=== PATIENT | male | born 1990 | race Caucasian/White ===

== ENCOUNTER 2018-03-01 18:25 | Emergency (ER) | payer BC, OTHER ==
--- NOTE | 2018-03-01 18:28 | PDOC ---
History of Present Illness - General History Source: Patient Exam Limitations: No Limitations - History of Present Illness Initial Comments: 03/01/18 18:57 The patient is a 27 year old male, with no significant past medical history, who presents to the emergency department with, 2 days of a sore throat, diffuse body aches, fever, and chills. He reports a Tmax of 101.5 degrees Fahrenheit. He reports an associated productive cough. He took Motrin 600 mg and Mucinex. He denies any recent sick contacts. He denies any recent headache or dizziness. He denies any recent nausea, vomit, diarrhea or constipation. He denies any recent chest pain or shortness of breath. He denies any recent dysuria, frequency, urgency or hematuria. Allergies: NKA Past surgical history: None reported. Social History: Nonsmoker. Denies recreational drug use. Familial History: Reviewed and noncontributory. Primary Care Physician: Dr. Houston <Shea Eldridge - Last Filed: 03/01/18 18:57> <Jarek Figueroa - Last Filed: 03/08/18 10:19> - General Chief Complaint: Sore Throat Stated Complaint: SORE THROAT Time Seen by Provider: 03/01/18 18:27 Past History <Shea Eldridge - Last Filed: 03/01/18 18:57> - Suicide/Smoking/Psychosocial Hx Smoking History: Never smoked Hx Alcohol Use: Yes (OCCASIONAL) Drug/Substance Use Hx: No Substance Use Type: None <Jarek Figueroa - Last Filed: 03/08/18 10:19> - Past Medical History Allergies/Adverse Reactions: Allergies Allergy/AdvReac Type Severity Reaction Status Date / Time No Known Allergies Allergy Verified 03/01/18 18:29 Home Medications: Ambulatory Orders NK [No Known Home Medication] 03/01/18 Review of Systems - Review of Systems Able to Perform ROS?: Yes Comments:: 03/01/18 18:58 CONSTITUTIONAL: Present: Fever, chills, body aches. Absent: no fatigue EYES: Absent: visual changes ENT: Present: Sore throat. Absent: ear pain CARDIOVASCULAR: Absent: chest pain, no palpitations RESPIRATORY: Present: Cough Absent: no SOB GI: Absent: abdominal pain, no nausea, no vomiting, no constipation, no diarrhea GENITOURINARY: Absent: dysuria, no frequency, no hematuria MUSKULOSKELETAL: Absent: back pain, no arthralgia, no myalgia SKIN: Absent: rash NEURO: Absent: headache All Other Systems: Reviewed and Negative <Shea Eldridge - Last Filed: 03/01/18 18:57> *Physical Exam - Vital Signs Last Vital Signs Temp Pulse Resp BP Pulse Ox 98.9 F 95 H 16 128/80 99 03/01/18 18:26 03/01/18 18:26 03/01/18 18:26 03/01/18 18:26 03/01/18 18:26 - Physical Exam Comments: 03/01/18 18:58 GENERAL: Well developed, well nourished. Awake and alert. No acute distress. HEENT: Mildly erythematous posterior oropharynx. Normocephalic, atraumatic. PERRLA, EOMI. No conjunctival pallor. Sclera are non-icteric. Moist mucous membranes. NECK: Supple. Full ROM. No JVD. Carotid pulses 2+ and symmetric, without bruits. No thyromegaly. No lymphadenopathy. CARDIOVASCULAR: Regular rate and rhythm. No murmurs, rubs, or gallops. Distal pulses are 2+ and symmetric. PULMONARY: No evidence of respiratory distress. Lungs clear to auscultation bilaterally. No wheezing, rales or rhonchi. ABDOMINAL: Soft. Non-tender. Non-distended. No rebound or guarding. No organomegaly. Normoactive bowel sounds. MUSCULOSKELETAL Normal range of motion at all joints. No bony deformities or tenderness. No CVA tenderness. EXTREMITIES: No cyanosis. No clubbing. No edema. No calf tenderness. SKIN: Warm and dry. Normal capillary refill. No rashes. No jaundice. NEUROLOGICAL: Alert, awake, appropriate. Cranial nerves 2-12 intact. No deficits to light touch and temperature in face, upper extremities and lower extremities. No motor deficits in the in face, upper extremities and lower extremities. Normoreflexic in the upper and lower extremities. Normal speech. Toes are down- going bilaterally. Gait is normal without ataxia. PSYCHIATRIC: Cooperative. Good eye contact. Appropriate mood and affect. <Shea Eldridge - Last Filed: 03/01/18 18:57> ED Treatment Course - ADDITIONAL ORDERS Additional order review: 03/01/18 18:26 Group A Strep Rapid Antigen - Final Throat NEGATIVE FOR THE ANTIGEN OF BETA HEMOLYTIC STREP GROUP A <Shea Eldridge - Last Filed: 03/01/18 18:57> Medical Decision Making - Medical Decision Making Strep screen is negative. Symptomatic treatment for viral URI and follow-up if no improvement. Fully ambulatory and in no significant pain or other distress upon discharge with to follow-up as directed <Jarek Figueroa - Last Filed: 03/08/18 10:19> *DC/Admit/Observation/Transfer - Attestations Scribe Attestion: 03/01/18 18:58 Documentation prepared by Shea Eldridge, acting as medical detail representative for Jarek Jurado MD. <Shea Eldridge - Last Filed: 03/01/18 18:57> - Discharge Dispostion Decision to Admit order: No <Jarek Figueroa - Last Filed: 03/08/18 10:19> Diagnosis at time of Disposition: Viral URI with cough - Discharge Dispostion Disposition: HOME Condition at time of disposition: Stable - Referrals Referrals: Romero Houston MD [Primary Care Provider] - 3 days - Patient Instructions Printed Discharge Instructions: DI for Viral Upper Respiratory Infection -- Adult - Post Discharge Activity Forms/Work/School Notes: Back to Work
[2018-03-01 18:44] VITALS: BP 128/80; PULSE 95; TEMP 98.9; BMI 23.6
== END 2018-03-01 19:09 | disposition home or self-care (01) ==
LOC: FER 18:25
DX: J06.9 Acute upper respiratory infection, unspecified (principal); R05 Cough
CPT/HCPCS: 87070; 87430; 99281-25

== ENCOUNTER 2018-12-23 19:20 | Emergency (ER) | payer BC ==
--- NOTE | 2018-12-23 19:26 | PDOC ---
History of Present Illness - General History Source: Patient Exam Limitations: No Limitations - History of Present Illness Initial Comments: 12/23/18 19:50 The patient is a 28 year old male, with no significant past medical history of who presents to the emergency department with generalized body aches since this afternoon. The patient notes he endorses nausea, chills, vomiting, and nbnb diarrhea, secondary to his symptoms. The patient notes he received IV toradol and 2L of fluid at home around 2pm (Mom is a RN), with relief. The patient states his body aches have progressively gotten worse, however, his vomiting and nausea have since resolved. The patient reports his current symptoms are similar to his previous flu symptoms (3 years ago).The patient notes he had the flu shot immunization this year. The patient denies sick contact. The patient denies fever, chest pain, shortness of breath, headache or dizziness. Allergies: NKA Past surgical history: None reported Social history: None reported PCP:Romero Elizalde <Sandra Hendricks - Last Filed: 12/23/18 19:59> <Pretty Escamilla - Last Filed: 12/24/18 04:41> - General Chief Complaint: Vomiting/Diarrhea Stated Complaint: N/V/D Time Seen by Provider: 12/23/18 19:23 Past History <Sandra Hendricks - Last Filed: 12/23/18 19:59> - Past Medical History COPD: No - Immunization History Immunization Up to Date: Yes - Suicide/Smoking/Psychosocial Hx Smoking History: Never smoked Hx Alcohol Use: Yes (OCCASIONAL) Drug/Substance Use Hx: No Substance Use Type: None <Pretty Escamilla - Last Filed: 12/24/18 04:41> - Past Medical History Allergies/Adverse Reactions: Allergies Allergy/AdvReac Type Severity Reaction Status Date / Time No Known Allergies Allergy Verified 12/23/18 19:23 Home Medications: Ambulatory Orders Ketorolac Injection [Toradol] 30 mg IJ ONCE 12/23/18 Review of Systems - Review of Systems Able to Perform ROS?: Yes Comments:: 12/23/18 19:52 GENERAL/CONSTITUTIONAL:(+) chills. (+) generalized body aches. No fever HEAD, EYES, EARS, NOSE AND THROAT: No change in vision. No ear pain or discharge. No sore throat. CARDIOVASCULAR: No chest pain or shortness of breath. RESPIRATORY: No cough, wheezing, or hemoptysis. GASTROINTESTINAL: (+) nausea, vomiting, diarrhea. No constipation. GENITOURINARY: No dysuria, frequency, or change in urination. MUSCULOSKELETAL: No joint or muscle swelling or pain. No neck or back pain. SKIN: No rash NEUROLOGIC: No headache, vertigo, loss of consciousness, or change in strength/ sensation. ENDOCRINE: No increased thirst. No abnormal weight change. HEMATOLOGIC/LYMPHATIC: No anemia, easy bleeding, or history of blood clots. ALLERGIC/IMMUNOLOGIC: No hives or skin allergy. All Other Systems: Reviewed and Negative <Sandra Hendricks - Last Filed: 12/23/18 19:59> *Physical Exam - Vital Signs Last Vital Signs Temp Pulse Resp BP Pulse Ox 98.5 F 115 H 16 123/69 98 12/23/18 19:23 12/23/18 19:23 12/23/18 19:23 12/23/18 19:23 12/23/18 19:23 - Physical Exam Comments: 12/23/18 19:52 GENERAL: Awake, alert, and fully oriented, in no acute distress HEAD: No signs of trauma EYES: PERRLA, EOMI, sclera anicteric, conjunctiva clear ENT: Auricles normal inspection, hearing grossly normal, nares patent, oropharynx clear without exudates. Moist mucosa NECK: Normal ROM, supple, no lymphadenopathy, JVD, or masses LUNGS: Breath sounds equal, clear to auscultation bilaterally. No wheezes, and no crackles HEART: Regular rate and rhythm, normal S1 and S2, no murmurs, rubs or gallops ABDOMEN: Soft, nontender, normoactive bowel sounds. No guarding, no rebound. No masses EXTREMITIES: Normal range of motion, no edema. No clubbing or cyanosis. No cords, erythema, or tenderness NEUROLOGICAL: Cranial nerves II through XII grossly intact. Normal speech, normal gait SKIN: Warm, Dry, normal turgor, no rashes or lesions noted. <Sandra Hendricks - Last Filed: 12/23/18 19:59> Moderate Sedation - Procedure Monitoring Vital Signs: Procedure Monitoring Vital Signs Temperature 98.5 F 12/23/18 19:23 Pulse Rate 115 H 12/23/18 19:23 Respiratory Rate 16 12/23/18 19:23 Blood Pressure 123/69 12/23/18 19:23 O2 Sat by Pulse Oximetry (%) 98 12/23/18 19:23 <Sandra Hendricks - Last Filed: 12/23/18 19:59> Medical Decision Making - Medical Decision Making Documentation has been prepared under my direction and personally reviewed by me in its entirety. I attest that this documented accurately reflects all work, treatment, procedures and medical decision making performed by me. As noted above, this 28-year-old man has had nausea/vomiting/diarrhea for the last 24 hours; he received IV fluid replacement and IV Toradol at home with resolution of the nausea and vomiting. Over the last 5-6 hours, he has had increasing malaise/myalgias. He states that he has a same feeling gassy. When he had influenza a few years ago. Exam as noted Although the patient may have viral gastroenteritis, rapid influenza test was sent to rule out influenza. Meanwhile, the patient will be discharged and advised to drink plenty of fluids/ rest and advance diet as tolerated. Rapid influenza test negative <Pretty Escamilla - Last Filed: 12/24/18 04:41> *DC/Admit/Observation/Transfer - Attestations Scribe Attestion: 12/23/18 19:52 Documentation prepared by Sandra Hendricks, acting as director of medical staff services for Pretty Escamilla MD <Sandra Hendricks - Last Filed: 12/23/18 19:59> <Pretty Escamilla - Last Filed: 12/24/18 04:41> Diagnosis at time of Disposition: Viral illness - Discharge Dispostion Disposition: HOME Condition at time of disposition: Stable - Referrals Referrals: Romero Houston MD [Primary Care Provider] - - Patient Instructions Printed Discharge Instructions: DI for Viral Syndrome Additional Instructions: Rest; drink plenty of fluids Clear liquids and advance diet cautiously as tolerated Ibuprofen/acetaminophen as needed for body aches/fever We will contact you if influenza test is positive Tamiflu 75 mg twice a day for 5 days if influenza is present No work for at least 72 hours after diagnosis of influenza - Post Discharge Activity
[2018-12-23 19:29] VITALS: BP 123/69; PULSE 115; TEMP 98.5; BMI 25.1
== END 2018-12-23 19:50 | disposition home or self-care (01) ==
LOC: FER 19:20
DX: B34.9 Viral infection, unspecified (principal)
CPT/HCPCS: 87804; 99281-25

== ENCOUNTER 2019-09-20 13:11 | Emergency (ER) | payer OTHER, BC ==
[2019-09-20 13:15] VITALS: BP 136/76; PULSE 95; TEMP 98; BMI 23.6
--- NOTE | 2019-09-20 13:15 | PDOC ---
Rapid Medical Evaluation Chief Complaint: Pain, Acute Time Seen by Provider: 09/20/19 13:13 Medical Evaluation: Allergies Allergy/AdvReac Type Severity Reaction Status Date / Time No Known Allergies Allergy Verified 12/23/18 19:23 09/20/19 13:14 I have performed a brief in-person evaluation of this patient. The patient presents with a chief complaint of:neck pain after lifting bed frame, hurts when turns head Pertinent physical exam findings: tight tense muscles but no Cspine pain I have ordered the following: nothing The patient will proceed to the ED for further evaluation. Discharge Disposition - Diagnosis Neck pain - Referrals - Patient Instructions - Post Discharge Activity
[2019-09-20] MEDS ORDERED: DEXAMETHASONE SOD PHOSPHATE 10 MG/1 ML VIAL IM ONE (13:30)
[2019-09-20] MEDS ORDERED: DEXAMETHASONE SOD PHOSPHATE 10 MG/1 ML VIAL ONE (13:40)
--- NOTE | 2019-09-20 15:16 | PDOC ---
History of Present Illness - General Chief Complaint: Injury Stated Complaint: INJURY/[employer] EMPLOYEE Time Seen by Provider: 09/20/19 13:13 History Source: Patient - History of Present Illness Initial Comments: 09/20/19 15:25 Complaint: Neck pain Patient is a healthy 29-year-old male who was working, picked up a bed, felt something pop in his neck earlier today and feels that there is weakness to his right arm. Patient denies any other injuries. GENERAL/CONSTITUTIONAL: No fever, weakness. dizziness HEAD, EYES, EARS, NOSE AND THROAT: No change in vision. No ear pain or discharge. No sore throat. CARDIOVASCULAR: No chest pain RESPIRATORY: No shortness of breath or cough GASTROINTESTINAL: No pain, nausea, vomiting, diarrhea or constipation GENITOURINARY: No dysuria MUSCULOSKELETAL: +neck, no:back pain SKIN: No rash NEUROLOGIC: No headache, vertigo, loss of consciousness, or loss of sensation. GENERAL: The patient is awake, alert, and fully oriented, in no acute distress. HEAD: Normal with no signs of trauma. EYES: Pupils equal, round and reactive to light, sclera anicteric, conjunctiva clear. ENT: pharynx: no erythema, no exudate, uvula midline NECK: With mild spasm,, mild tenderness CHEST: clear, nontender, rr ABD: soft, nontender BACK: no tenderness or signs of injury EXTREMITIES: Normal range of motion, no edema. 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 Cranial nerves II through XII grossly intact, no gross focal abnormalities, except as noted in extremities SKIN: Warm, Dry 09/20/19 16:09 Past History - Past Medical History Allergies/Adverse Reactions: Allergies Allergy/AdvReac Type Severity Reaction Status Date / Time No Known Allergies Allergy Verified 09/20/19 13:15 Home Medications: Ambulatory Orders Ketorolac Injection [Toradol] 30 mg IJ ONCE 12/23/18 Cyclobenzaprine HCl [Flexeril -] 10 mg PO TID #21 tablet 09/20/19 Methylprednisolone [Medrol Dose Don] 4 mg PO ASDIR #21 tablet 09/20/19 COPD: No - Immunization History Immunization Up to Date: Yes - Psycho Social/Smoking Cessation Hx Smoking History: Never smoked Hx Alcohol Use: Yes (OCCASIONAL) Drug/Substance Use Hx: No Substance Use Type: None *Physical Exam - Vital Signs Last Vital Signs Temp Pulse Resp BP Pulse Ox 98 F 95 H 18 136/76 100 09/20/19 13:13 09/20/19 13:13 09/20/19 13:13 09/20/19 13:13 09/20/19 13:13 ED Treatment Course - Medications Given in the ED: ED Medications Discontinued Medications Generic Name Dose Route Start Last Admin Trade Name Diann PRN Reason Stop Dose Admin Dexamethasone Sodium Phosphate 10 mg 09/20/19 13:30 09/20/19 13:44 Decadron Injection - IM 09/20/19 13:31 10 mg ONCE ONE Administration Medical Decision Making - Medical Decision Making 09/20/19 16:11 Patient with injury to cervical spine after lifting something, feeling a pop, having pain and having weakness to left upper extremity. Patient will get steroids, MRI of the cervical spine to evaluate for ligament, disc issue, took Motrin prior to coming to ER. MRI showed 2 mild disc bulge, patient feels better after Decadron, will have Medrol Dosepak and Flexeril Discussed issues, findings, results, applicable medications and treatments and follow-up. All these were understood and all questions were answered 09/20/19 16:13 Discharge - Discharge Information Problems reviewed: Yes Clinical Impression/Diagnosis: Neck injury Qualifiers: Encounter type: initial encounter Qualified Code(s): S19.9XXA - Unspecified injury of neck, initial encounter Condition: Stable Disposition: HOME - Admission No - Additional Discharge Information Prescriptions: Cyclobenzaprine HCl [Flexeril -] 10 mg PO TID #21 tablet Methylprednisolone [Medrol Dose Don] 4 mg PO ASDIR #21 tablet Prescription Drug Monitoring Program (I-STOP) results: I-STOP not reviewed - Follow up/Referral Referrals: Romero Houston MD [Primary Care Provider] - Javier Gonzalez MD, FAANS [Staff Physician] - - Patient Discharge Instructions Patient Printed Discharge Instructions: DI for Neck Pain Additional Instructions: No heavy lifting or bending Apply ice to the area 20 minutes every 2 hours for the next 2 days Starting tomorrow, take the Medrol Dosepak until finished Continue taking Motrin 600 mg every 6 hours for pain. If still in pain he can also take Percocet one to 2 tablets every 4 hours. Return to the nearest ER if numbness, weakness, severe pain, problems with urinating or having bowel movements. Call orthopedist today for an appointment for further evaluation - Post Discharge Activity Work/Back to School Note: Back to Work
== END 2019-09-20 15:42 | disposition home or self-care (01) ==
LOC: JERFT 13:11
CPT/HCPCS: 72141-TC; 99282-25; J1100

== ENCOUNTER 2020-07-13 12:17 | Emergency (ER) | payer BC, OTHER ==
--- OUTSIDE RECORDS SUMMARY | 2020-07-13 12:21 | XMS ---
:1990 Author Organization [facility] Support Name Relationship Address Phone [place] Unavailable UNKNOWN [address] [id number] SHARRI, STUDENT Unavailable Unavailable Unavailable SHARRI Unavailable Unavailable Unavailable QASIM WATTS MOTHER [address] [place] [address] DEPARTMENT OF [employer] Unavailable [address] [place] [address] YAZMIN WATTS W FATHER [address] [place] [address] Re-disclosure Warning The records that you are about to access may contain information from federally- assisted alcohol or drug abuse programs. If such information is present, then the following federally mandated warning applies: This information has been disclosed to you from records protected by federal confidentiality rules (42 CFR part 2). The federal rules prohibit you from making any further disclosure of this information unless further disclosure is expressly permitted by the written consent of the person to whom it pertains or as otherwise permitted by 42 CFR part 2. A general authorization for the release of medical or other information is NOT sufficient for this purpose. The Federal rules restrict any use of the information to criminally investigate or prosecute any alcohol or drug abuse patient.The records that you are about to access may contain highly sensitive health information, the redisclosure of which is protected by Article 27-F of the [facility] Public Health law. If you continue you may haveaccess to information: Regarding HIV / AIDS; Provided by facilities licensed or operated by the [facility] Office of Mental Health; or Provided by the [facility] Office for People With Developmental Disabilities. If such information is present, then the following [facility] mandated warning applies: This information has been disclosed to you from confidential records which are protected by state law. State law prohibits you from making any further disclosure of this information without the specific written consent of the person to whom it pertains, or as otherwise permitted by law. Any unauthorized further disclosure in violation of state law may result in a fine or residential sentence or both. A general authorization for the release of medical or other information is NOT sufficient authorization for further disclosure. Insurance Providers Payer name Policy type Policy ID Covered Covered democrat's Policy P jael / Coverage democrat ID relationship to [place] Inf ormation type gordon BRANDYWINE [id number] SP [id number] HEALTHCARE PPO BC PPO [id number] SP [id number] BLUE CROSS [id number] FA [id number] OTHER BC PPO [id number] FA [id number] EMPIRE NYSHIP [id number] FA [id number] BRANDYWINE [id number] SP [id number] HEALTHCARE PPO BC PPO [id number] SP [id number] BC PPO [id number] FA [id number] AMIN RISK [id number] SP [id number] MANAGMENT SELF PAY INSURANCE PENDING WC/NF [id number] SP [id number] ONLY EMPIRE PLAN [id number] ([facility]) EMPIRE PLAN [id number] ([facility]) Results ID Date Data Source [id number] 12/17/2019 12:00:00 AM EDT [facility] Name Value Range Interpretation Code Description Data Laina rce(s) Supporting Document(s ) 2019-nCoV [facility] RNA XXX ANA+probe- Imp This lab was ordered by [facility] a nd reported by [employer] Procedure
--- NOTE | 2020-07-13 13:10 | TELE ---
HPI Do you have fever,cough or shortness of breath?: No (States scratchy throat) - General History Source: Patient (29-year-old male presents via virtual telehealth for COVID testing.) Exam Limitations: No Limitations - History of Present Illness Timing/Duration: 24 hours Severity: reports: mild Associated Symptoms: reports: other (Sore throat) Past History - Travel History Traveled outside of the country in the last 30 days: No Close contact w/someone who was outside of country & ill: No - Medical History Allergies/Adverse Reactions: Allergies Allergy/AdvReac Type Severity Reaction Status Date / Time No Known Allergies Allergy Verified 09/20/19 13:15 Home Medications: Ambulatory Orders Ketorolac Injection [Toradol] 30 mg IJ ONCE 12/23/18 Cyclobenzaprine HCl [Flexeril -] 10 mg PO TID #21 tablet 09/20/19 Methylprednisolone [Medrol Dose Don] 4 mg PO ASDIR #21 tablet 09/20/19 COPD: No - Immunization History Immunization Up to Date: Yes - Psycho-Social/Smoking History Patient Lives Alone: No Smoking History: Never smoked Review of Systems - Review of Systems Able to Perform ROS?: Yes Constitutional: No: Symptoms Reported HEENTM: Yes: Throat Pain Respiratory: No: Symptoms reported Cardiac (ROS): No: Symptoms Reported ABD/GI: No: Symptoms Reported : No: Symptoms Reported Musculoskeletal: No: Symptoms Reported Integumentary: No: Symptoms Reported Neurological: No: Symptoms reported *Physical Exam - Physical Exam General Appearance: Yes: Nourished. No: Apparent Distress HEENT: positive: EOMI Neck: negative: Decreased range of motion Respiratory/Chest: negative: Respiratory Distress Gastrointestinal/Abdominal: negative: Distended Integumentary: positive: Normal Color Neurologic: positive: Motor Strength 5/5 (Ambulatory) - Medical Decision Making 07/13/20 13:24 Chief complaint: Patient requested COVID testing patient complaining of sore throat since yesterday and no other complaints. Exam: Limited but otherwise normal PE. Plan: COVID test ordered Discharge Diagnosis at time of Disposition: Encounter for laboratory testing for COVID-19 virus - Referrals Follow-up Referral(s): Romero Houston MD [Primary Care Provider] - - Patient Instructions - Discharge Disposition: HOME Condition at time of Disposition: Good
== END 2020-07-13 13:24 | disposition home or self-care (01) ==
LOC: JVIRT 12:17
DX: Z11.59 Encounter for screening for other viral diseases (principal)
CPT/HCPCS: C9803; Q3014-GT; U0003

== ENCOUNTER 2020-08-21 16:22 | Emergency (ER) | payer BC, OTHER | END 2020-08-21 16:49 | disposition home or self-care (01) | LOC: JVIRT 16:22 | DX: Z03.818 Encounter for observation for suspected exposure to other biological agents ruled out (principal) | CPT/HCPCS: C9803; Q3014-GT; U0003 ==

== ENCOUNTER 2022-11-26 04:27 | Day surgery (SDC) | payer BC ==
[2022-11-24 08:15] VITALS: BMI 26.6
[2022-11-26 10:09] VITALS: TEMP 98
[2022-11-26 10:16] VITALS: PULSE 73
[2022-11-26 10:32] VITALS: BP 99/37; RESP 16
== END 2022-11-26 10:50 | disposition home or self-care (01) ==
LOC: JASU-ENDO 04:27
PROVIDERS: ATTEND Internal Medicine Gastroenterology
PROC: 0DBN8ZX Excision of Sigmoid Colon, Via Natural or Artificial Opening Endoscopic, Diagnostic (ICD-10-PCS; principal; 2022-11-26 09:00)
DX: K64.8 Other hemorrhoids (principal); D12.5 Benign neoplasm of sigmoid colon
CPT/HCPCS: 88305-TC

== ENCOUNTER 2023-01-20 12:34 | Emergency (ER) | payer BC, OTHER ==
[2023-01-20 13:21] VITALS: BP 139/95; PULSE 97; RESP 18; TEMP 98.3; BMI 25.5
== END 2023-01-20 13:45 | disposition home or self-care (01) ==
LOC: FER 12:34
DX: R10.31 Right lower quadrant pain (principal)
CPT/HCPCS: 99282-25